=== PATIENT | male | born 1950 | race Caucasian/White ===

== ENCOUNTER 2016-04-23 09:32 | Day surgery (SDC) | payer OTHER, MEDICARE ==
[2016-04-23] MEDS ORDERED: LR 1,000 ML IV ONE (10:42)
[2016-04-23] MEDS ORDERED: MIDAZOLAM 2 MG/2 ML VIAL ONE (13:06)
[2016-04-23] MEDS ORDERED: PROPOFOL/EMULSION 500 MG/50 ML BOTTLE IV ONE (13:07)
[2016-04-23] MEDS ORDERED: PROPOFOL 200 MG/20 ML VIAL ONE (13:35)
--- NOTE | 2016-04-23 15:02 | GPN ---
[f rep st] PROCEDURE NOTE DATE OF PROCEDURE: 04/23/2016 PROCEDURE: 1. Esophagogastroduodenoscopy with endoscopic mucosal resection, biopsy. 2. Endoscopic ultrasound. INDICATION: The patient is a 66-year-old male who presents for evaluation of a polypoid lesion seen in the distal esophagus. He had a prior EGD with biopsy of this lesion with pathology revealing a papilloma. He presents for further evaluation. CONSENT: Risks, benefits, and alternatives of the procedure were discussed in great detail with the patient. Risk of infection, bleeding, perforation, and sedation were discussed. All questions were answered. Informed consent was obtained. MEDICATIONS: Propofol. Please see Anesthesiology record for details. ESTIMATED BLOOD LOSS: Insignificant. ESOPHAGOGASTRODUODENOSCOPY EXAMINATION: The Olympus upper endoscope was introduced into the mouth and advanced to the esophagus. The proximal and mid esophagus were normal appearance. In the distal esophagus, a 7 mm flat polypoid lesion was seen. This was suspected to be that of the papilloma on biopsy. After EUS examination, approximately 2 cc of fluid was injected into the mucosa for a subepithelial lift. The lesion was then snared and removed. There appeared to be a remnant polyp after the snare and biopsies were taken around the edges. The stomach was entered and on retroflexion a large hiatal hernia was noted. The mucosa in the antrum and body was erythematous in a patchy distribution and biopsies were taken. The duodenal bulb and second portion of the duodenum were normal in appearance. ENDOSCOPIC ULTRASOUND EXAMINATION: The Olympus linear echoendoscope was introduced into the mouth and advanced to the second portion of the duodenum. The polypoid lesion was carefully examined and was noted to be located within the superficial layers. This lesion was removed after EUS (see above) The pancreas was carefully examined from the uncinate process to the tail, where the spleen was seen. No pancreatic masses were seen. No suspicious periportal, peripancreatic, or periesophageal nodes were appreciated. The gallbladder was seen. No obvious stone, stricture, or stenosis. The common bile duct was not dilated. IMPRESSION: 1. Esophageal polypoid lesion at the distal esophagus status post endoscopic mucosal resection. EUS revealed that limited to superficial esophageal layers. 2. Gastritis, status post biopsy. 3. Hiatal hernia. RECOMMENDATIONS: 1. Follow up on biopsy results. 2. Repeat EGD in 6 months for surveillance. /[id number]/MODL MTDD
== END 2016-04-23 15:40 | disposition home or self-care (01) ==
LOC: FSGY 09:32
PROVIDERS: ATTEND Internal Medicine Gastroenterology
PROC: 0DB68ZX Excision of Stomach, Via Natural or Artificial Opening Endoscopic, Diagnostic (ICD-10-PCS; 2016-04-23)
PROC: 0DJ08ZZ Inspection of Upper Intestinal Tract, Via Natural or Artificial Opening Endoscopic (ICD-10-PCS; 2016-04-23)
PROC: 3E0G8KZ Introduction of Other Diagnostic Substance into Upper GI, Via Natural or Artificial Opening Endoscopic (ICD-10-PCS; 2016-04-23)
PROC: 0DB38ZX Excision of Lower Esophagus, Via Natural or Artificial Opening Endoscopic, Diagnostic (ICD-10-PCS; principal; 2016-04-23 11:15)
DX: D13.0 Benign neoplasm of esophagus (principal); K29.70 Gastritis, unspecified, without bleeding; K44.9 Diaphragmatic hernia without obstruction or gangrene; K21.0 Gastro-esophageal reflux disease with esophagitis; D69.6 Thrombocytopenia, unspecified; R16.1 Splenomegaly, not elsewhere classified; I10 Essential (primary) hypertension; Z88.2 Allergy status to sulfonamides
CPT/HCPCS: J2250; J2704